=== PATIENT | female | born 1995 | race Caucasian/White ===

== ENCOUNTER 2017-05-17 11:23 | Emergency (ER) | payer OTHER ==
[2017-05-17 11:31] VITALS: TEMP 98.2; BMI 18.8
--- NOTE | 2017-05-17 11:44 | PDOC ---
History of Present Illness - General Chief Complaint: Nausea/Vomiting Stated Complaint: VOMITING Time Seen by Provider: 05/17/17 11:43 Past History - Past Medical History Allergies/Adverse Reactions: Allergies Allergy/AdvReac Type Severity Reaction Status Date / Time No Known Drug Allergies Allergy Verified 05/22/16 09:54 Home Medications: Ambulatory Orders Norethindrone AC-Eth Estradiol [Junel] 1 each PO DAILY 10/08/16 Ondansetron HCl [Zofran] 4 mg PO Q4H #120 tablet 05/17/17 Anemia: Yes Asthma: No Cancer: No Cardiac Disorders: No CVA: No COPD: No CHF: No Dementia: No Diabetes: No GI Disorders: Yes (CYCLIC VOMITNG SYNDROME) Disorders: No HTN: No Hypercholesterolemia: No Liver Disease: No Psychiatric Problems: Yes (ANXIETY) Seizures: No Thyroid Disease: No - Surgical History Abdominal Surgery: Yes (ovarian cyst, exploratory) Appendectomy: Yes (08/2014) - Psycho/Social/Smoking Cessation Hx Anxiety: Yes Suicidal Ideation: No Smoking Status: No Smoking History: Never smoked Have you smoked in the past 12 months: No Number of Cigarettes Smoked Daily: 0 Information on smoking cessation initiated: No Hx Alcohol Use: No Drug/Substance Use Hx: Yes (uday) Substance Use Type: Marijuana Hx Substance Use Treatment: No *Physical Exam - Vital Signs Last Vital Signs Temp Pulse Resp BP Pulse Ox 98.2 F 110 H 18 125/82 100 05/17/17 11:28 05/17/17 11:28 05/17/17 11:28 05/17/17 11:28 05/17/17 11:28 ED Treatment Course - LABORATORY CBC & Chemistry Diagram: 05/17/17 12:10 05/17/17 12:10 Medical Decision Making - Medical Decision Making 05/18/17 09:34 Pt presents to the Ed complaining of nausea and vomiting similar to previous episodes. Resolving in the ED after zofran and ativan. patient admits to chronic THC and xanax abuse, but shows no signs of active benzodiazepine withdrawal. Will discharge home. Family is taking patient to detox. *DC/Admit/Observation/Transfer Diagnosis at time of Disposition: Vomiting, Intractable vomiting with nausea, Epigastric pain - Discharge Dispostion Disposition: HOME Condition at time of disposition: Good - Prescriptions Prescriptions: Ondansetron HCl [Zofran] 4 mg PO Q4H #120 tablet - Referrals Referrals: Svetlana Baxter MD [Primary Care Provider] - - Patient Instructions Printed Discharge Instructions: DI for Vomiting -- Adult Additional Instructions: Please refer to rehab facility and stop marijuana use as it may be a cause of vomiting. Also recommend psychology/psychiatry follow up for anxiety.
[2017-05-17] MEDS ORDERED: ONDANSETRON 4 MG/2 ML VIAL IVPUSH ONE (12:09)
[2017-05-17] MEDS ORDERED: SODIUM CHLORIDE 1,000 ML IV STA ×2 (12:09→13:32)
[2017-05-17] MEDS ORDERED: diazePAM CARPU-JECT 10 MG/2 ML DISP.SYRIN IVPUSH ONE (12:09)
[2017-05-17] MEDS ORDERED: ONDANSETRON 4 MG/2 ML VIAL ONE (12:18)
[2017-05-17] MEDS ORDERED: diazePAM CARPU-JECT 10 MG/2 ML DISP.SYRIN ONE (12:18)
[2017-05-17 12:27] LABS: BASOPHIL 0.5 % (0-2.0); EOSINOPHIL 0.2 % (0-4.5); MCH 31.5 pg (25.7-33.7); MCHC 34.5 g/dl (32.0-36.0); MEAN CELL VOLUME 91.3 fl (80-96); MEAN PLT VOLUME 8.9 fl (7.5-11.1); NEUTROPHILS 64.3 % (42.8-82.8); PLATELET COUNT 255 K/MM3 (134-434); WHITE BLOOD COUNT 10.2 K/mm3 (4.0-10.0)
[2017-05-17 13:00] LABS: ALBUMIN 4.8 g/dl (3.4-5.0); ANION GAP 14 (8-16); BILIRUBIN,TOTAL 1.2 mg/dL (0.2-1.0); CALCIUM 9.9 mg/dL (8.5-10.1); CO2 24 mmol/L (21-32); CREATININE 0.9 mg/dL (0.55-1.02); GLUCOSE,RANDOM 85 mg/dL (74-106); MAGNESIUM 2.3 mg/dL (1.8-2.4); SGOT/AST 18 U/L (15-37); SGPT/ALT 30 U/L (12-78)
[2017-05-17 13:01] LABS: ALK PHOS 39 U/L (45-117)
[2017-05-17] MEDS ORDERED: METOCLOPRAMIDE HCL INJECTION 10 MG/2 ML VIAL IVPUSH ONE (13:32)
[2017-05-17] MEDS ORDERED: METOCLOPRAMIDE HCL INJECTION 10 MG/2 ML VIAL ONE (13:37)
--- NOTE | 2017-05-17 13:45 | PDOC ---
History of Present Illness - General Chief Complaint: Nausea/Vomiting Stated Complaint: VOMITING Time Seen by Provider: 05/17/17 11:43 History Source: Patient Exam Limitations: No Limitations - History of Present Illness Initial Comments: 05/17/17 13:45 This is a 22 yo F with chronic cyclic nausea syndrome of unknown etiology x 4-5 yrs (s/p multiple evaluations including exlap, egd a few yrs ago), who presents with 3 days of typical symptoms including nausea, nonbloody, bilious vomiting and abd pain. There are no new atypical symptoms. She has had multiple episodes of vomiting and has been unable to tolerate P intake. She feels dehydrated and anxious. She denies f/c, diarrhea, dysuria. Her LMp was a week ago, she in on PO contraceptives and her vomiting episondes are not chronologically correlated with menstruation. They tend to occur during periods of anxiety when patient is away from home. for the past 3 days she has been taking her mothers xanax, as well as her own ppi and zofran, which has not helped significantly. She admits do daily marijuana use, which started before the onset of her first vomiting symptoms 5 yrs ago. She is planning to attend rehab after she leaves ER because was told that THC may me a cause of her issue. 05/17/17 14:15 05/17/17 14:32 Past History - Past Medical History Allergies/Adverse Reactions: Allergies Allergy/AdvReac Type Severity Reaction Status Date / Time No Known Drug Allergies Allergy Verified 05/22/16 09:54 Home Medications: Ambulatory Orders Norethindrone AC-Eth Estradiol [Junel] 1 each PO DAILY 10/08/16 Ondansetron HCl [Zofran] 4 mg PO Q4H #120 tablet 05/17/17 Anemia: Yes Asthma: No Cancer: No Cardiac Disorders: No CVA: No COPD: No CHF: No Dementia: No Diabetes: No GI Disorders: Yes (CYCLIC VOMITNG SYNDROME) Disorders: No HTN: No Hypercholesterolemia: No Liver Disease: No Psychiatric Problems: Yes (ANXIETY) Seizures: No Thyroid Disease: No - Surgical History Abdominal Surgery: Yes (ovarian cyst, exploratory) Appendectomy: Yes (08/2014) - Psycho/Social/Smoking Cessation Hx Anxiety: Yes Suicidal Ideation: No Smoking Status: No Smoking History: Never smoked Have you smoked in the past 12 months: No Number of Cigarettes Smoked Daily: 0 Information on smoking cessation initiated: No Hx Alcohol Use: No Drug/Substance Use Hx: Yes (uday) Substance Use Type: Marijuana Hx Substance Use Treatment: No Review of Systems - Review of Systems Able to Perform ROS?: Yes Is the patient limited Portuguese proficient: No Constitutional: No: Chills, Fever, Weakness HEENTM: No: Nose Congestion, Throat Pain, Difficulty Swallowing Respiratory: No: Cough, Orthopnea, Shortness of Breath, Stridor, Productive cough Cardiac (ROS): No: Chest Pain, Edema, Irregular Heart Rate, Lightheadedness, Palpitations, Syncope ABD/GI: Yes: Nausea, Poor Appetite, Vomiting. No: Constipated, Diarrhea, Rectal Bleeding, Tarry Stools : No: Dysuria, Flank Pain Musculoskeletal: No: Back Pain, Joint Pain, Neck Pain Integumentary: No: Bruising, Rash Neurological: No: Headache, Numbness, Paresthesia Psychiatric: Yes: Anxiety, Emotional Problems. No: Depression Endocrine: No: Flushing, Change in Weight Hematologic/Lymphatic: No: Anemia, Blood Clots, Easy Bleeding, Easy Bruising All Other Systems: Reviewed and Negative *Physical Exam - Vital Signs Last Vital Signs Temp Pulse Resp BP Pulse Ox 98.2 F 110 H 18 125/82 100 05/17/17 11:28 05/17/17 11:28 05/17/17 11:28 05/17/17 11:28 05/17/17 11:28 - Physical Exam Comments: 05/17/17 14:33 HEENT: normocephalic, atraumatic, perrla, eomi, sclera anicteric, conjunctiva clear, dry mucus membranes Neuro: CN II-XII grossly intact CV: rrr s1s2 Pulm: cta b/l GI: soft, diffusely mildly tender mostly in pelvic area, nondistended, reduced bowel sounds, no mass . Musculoskeletal: no le edemal ED Treatment Course - LABORATORY CBC & Chemistry Diagram: 05/17/17 12:10 05/17/17 12:10 - ADDITIONAL ORDERS Additional order review: Laboratory Results 05/17/17 05/17/17 12:13 12:10 Sodium 137 Potassium 3.6 Chloride 99 Carbon Dioxide 24 Anion Gap 14 BUN 12 Creatinine 0.9 D Creat Clearance w eGFR > 60 Random Glucose 85 Calcium 9.9 Magnesium 2.3 Total Bilirubin 1.2 H D AST 18 ALT 30 D Alkaline Phosphatase 39 L D Total Protein 8.0 Albumin 4.8 Urine HCG, Qual Negative 05/17/17 12:10 RBC 5.52 H D MCV 91.3 MCHC 34.5 RDW 13.0 MPV 8.9 Neutrophils % 64.3 D Lymphocytes % 22.5 D Monocytes % 12.5 H Eosinophils % 0.2 D Basophils % 0.5 - Medications Given in the ED: ED Medications Discontinued Medications Generic Name Dose Route Start Last Admin Trade Name Ron PRN Reason Stop Dose Admin Diazepam 5 mg 05/17/17 12:09 05/17/17 12:30 Valium Injection - IVPUSH 05/17/17 12:10 5 mg ONCE ONE Administration Sodium Chloride 1,000 mls @ 1,000 mls/hr 05/17/17 12:09 05/17/17 12:30 Normal Saline - IV 05/17/17 13:08 1,000 mls/hr ASDIR STA Administration Ondansetron HCl 4 mg 05/17/17 12:09 05/17/17 12:30 Zofran Injection IVPUSH 05/17/17 12:10 4 mg ONCE ONE Administration Medical Decision Making - Medical Decision Making 05/17/17 13:44 Patient presents with recurrent cyclical vomiting -cbc, instruction assistant principal, ua, u tox, mag, u preg -start NS IV, zofran, valium -CBC consistent with volume depletion, continue IV hydration -cmp unremarkable, u tox as expected positive for thc and benzo. test negative patient still feels nauseous, add IV reglan and benadryl. 05/17/17 14:56 Patient feels better, no longer vomiting. tolerated PO fluids. discussed rehab with mother. patient to be d/cs witha zofran prescription and advised to quit marijuana. 05/17/17 14:58 *DC/Admit/Observation/Transfer Diagnosis at time of Disposition: Vomiting, Intractable vomiting with nausea, Epigastric pain - Discharge Dispostion Disposition: HOME Condition at time of disposition: Good Admit: No - Prescriptions Prescriptions: Ondansetron HCl [Zofran] 4 mg PO Q4H #120 tablet - Patient Instructions Printed Discharge Instructions: DI for Vomiting -- Adult Additional Instructions: Please refer to rehab facility and stop marijuana use as it may be a cause of vomiting. Also recommend psychology/psychiatry follow up for anxiety.
[2017-05-17 13:49] LABS: URINE MARIJUANA THC POSITIVE ng/ml (CUTOFF=50)
[2017-05-17 15:15] VITALS: BP 115/74; PULSE 91
== END 2017-05-17 15:17 | disposition home or self-care (01) ==
LOC: JER 11:23
PROC: 3E033NZ Introduction of Analgesics, Hypnotics, Sedatives into Peripheral Vein, Percutaneous Approach (ICD-10-PCS; principal; 2017-05-17)
PROC: 3E033GC Introduction of Other Therapeutic Substance into Peripheral Vein, Percutaneous Approach (ICD-10-PCS; 2017-05-17)
PROC: 3E033GC Introduction of Other Therapeutic Substance into Peripheral Vein, Percutaneous Approach (ICD-10-PCS; 2017-05-17)
DX: G43.A0 Cyclical vomiting, in migraine, not intractable (principal); E86.0 Dehydration; E86.9 Volume depletion, unspecified
CPT/HCPCS: 36415; 80053; 80307; 83735; 85025; 99283-25

== ENCOUNTER 2017-05-18 16:25 | Emergency (ER) | payer OTHER ==
[2017-05-18 16:34] VITALS: BP 124/92; PULSE 105; TEMP 98.1; BMI 19.2
[2017-05-18] MEDS ORDERED: ONDANSETRON 4 MG/2 ML VIAL IVPB ONE (17:30)
[2017-05-18] MEDS ORDERED: ONDANSETRON *ODT* 4 MG TABLET ONE (17:30)
--- NOTE | 2017-05-18 17:31 | PDOC ---
History of Present Illness - General History Source: Patient Exam Limitations: No Limitations - History of Present Illness Initial Comments: 05/18/17 19:20 The patient is 22 year old female with a significant past medical history of daily marijuana use, who presents to the ED with worsening epigastric pain, nausea, and vomiting. She states it first began 5 days ago. She describes the epigastric pain as 10/10 in severity. She states she has associated symptoms of chills, dry mouth, constipation, and headaches. She states using heat pads over the region helps alleviate the pain. She denies flank pain. She denies fever, diarrhea. She denies dysuria, frequency, urinary symptoms. Vomting is nbnb. She was seen last night for same symptoms. She was discharged on zofran and advised to quit marijuana. She states these symptoms tend to occur during periods of anxiety when patient is away from home. For the past 4 days she has been taking her mother's xanax, as well as her own ppi and zofran, which has not helped significantly. She admits to daily marijuana use, which started before the onset of her first vomiting symptoms 5 years ago. Pt stats she currently feels much better than prior to presentation. She is currently on control. LMP: 3 weeks ago She denies smoking cigarettes. She drinks Alcohol once a week. <Yuniel Padilla - Last Filed: 05/18/17 19:20> <Gume Wilks - Last Filed: 05/20/17 07:51> - General Chief Complaint: Nausea/Vomiting Stated Complaint: NAUSEA, VOMITING Time Seen by Provider: 05/18/17 16:33 Past History <Yuniel Padilla - Last Filed: 05/18/17 19:20> - Past Medical History Anemia: Yes Asthma: No Cancer: No Cardiac Disorders: No CVA: No COPD: No CHF: No Dementia: No Diabetes: No GI Disorders: Yes (CYCLIC VOMITNG SYNDROME) Disorders: No HTN: No Hypercholesterolemia: No Liver Disease: No Psychiatric Problems: Yes (ANXIETY) Seizures: No Thyroid Disease: No - Surgical History Abdominal Surgery: Yes (ovarian cyst, exploratory) Appendectomy: Yes (08/2014) - Psycho/Social/Smoking Cessation Hx Anxiety: Yes Suicidal Ideation: No Smoking Status: No Smoking History: Current some day smoker Have you smoked in the past 12 months: Yes Number of Cigarettes Smoked Daily: 0 Information on smoking cessation initiated: Yes 'Breaking Loose' booklet given: 05/18/17 Hx Alcohol Use: No Drug/Substance Use Hx: Yes (uday) Substance Use Type: Marijuana Hx Substance Use Treatment: No <LashaunGume - Last Filed: 05/20/17 07:51> - Past Medical History Allergies/Adverse Reactions: Allergies Allergy/AdvReac Type Severity Reaction Status Date / Time No Known Drug Allergies Allergy Verified 05/18/17 16:28 Home Medications: Ambulatory Orders Ondansetron HCl [Zofran] 4 mg PO Q4H #120 tablet 05/17/17 Metoclopramide HCl [Reglan] 10 mg PO TID PRN #15 tablet 05/18/17 Norethindrone AC-Eth Estradiol [Loestrin 21 1-20 Tablet] 1 each PO ASDIR Review of Systems - Review of Systems Able to Perform ROS?: Yes Comments:: 05/18/17 19:21 CONSTITUTIONAL: No reported: Fever, Chills, Diaphoresis, Generalized Weakness, Malaise, Loss of Appetite HEENT: No reported: Rhinorrhea, Nasal Congestion, Throat Pain, Throat Swelling, Difficulty Swallowing, Mouth Swelling, Ear Pain, Eye Pain, Visual Changes CARDIOVASCULAR: No reported: Chest Pain, Syncope, Palpitations, Irregular Heart Rate, Lightheadedness, Peripheral Edema RESPIRATORY: No reported: Cough, Shortness of Breath, SOB with Exertion, Orthopnea, Wheezing , Stridor, Hemoptysis GASTROINTESTINAL: + epigastric pain. + nausea + vomiting + contipation. No reported: Abdominal Distension, Diarrhea, Melena, Hematochezia GENITOURINARY: No reported: Dysuria, Frequency, Urgency, Hesitancy, Flank Pain, Genital Pain MUSCULOSKELETAL: No reported: Myalgia, Arthralgia, Joint Swelling, Back pain, Neck Pain SKIN: No reported: Rash, Itching, Pallor HEMEATOLOGIC/IMMUNOLOGIC: No reported: Easy Bleeding, Easy Bruising, Lymphadenopathy, Frequent infections ENDOCRINE: No reported: Unexplained Weight Gain, Unexplained Weight Loss, Heat Intolerance , Cold Intolerance NEUROLOGIC: + headache. No reported: Focal Weakness, Paresthesias, Vertigo, Lightheadedness , Unsteady Gait, Seizure, Mental Status Changes, Incontinence PSYCHIATRIC: No reported: Anxiety, Depression <Yuniel Padilla - Last Filed: 05/18/17 19:20> *Physical Exam - Vital Signs Last Vital Signs Temp Pulse Resp BP Pulse Ox 98.1 F 105 H 20 124/92 99 05/18/17 16:25 05/18/17 16:25 05/18/17 16:25 05/18/17 16:25 05/18/17 16:25 - Physical Exam Comments: 05/18/17 19:21 GENERAL: The patient is awake, alert, and fully oriented, Nontoxic - in no acute distress. HEAD: Normocephalic, atraumatic. EYES: extraocular movements intact, sclera anicteric, conjunctiva clear. ENT: Normal voice, Moist mucous membranes. NECK: Normal range of motion, supple LUNGS: Breath sounds equal, clear to auscultation bilaterally. No wheezes, no rhonchi, no rales. HEART: Regular rate and rhythm, without murmur, rub or gallop. ABDOMEN: mild mid abdominal tenderness. Normoactive bowel sounds. No guarding, no rebound.No CVA tenderness EXTREMITIES: Normal range of motion, no edema. No clubbing or cyanosis. No cords, erythema, or tenderness. NEUROLOGICAL: No facial assymetry, Normal speech, PSYCH: Normal mood, normal affect. SKIN: Warm, Dry, normal turgor, <Yuniel Padilla - Last Filed: 05/18/17 19:20> - Vital Signs Last Vital Signs Temp Pulse Resp BP Pulse Ox 98.1 F 105 H 20 124/92 99 05/18/17 16:25 05/18/17 16:25 05/18/17 16:25 05/18/17 16:25 05/18/17 16:25 <Gume Wilks - Last Filed: 05/20/17 07:51> ED Treatment Course - Medications Given in the ED: ED Medications Discontinued Medications Generic Name Dose Route Start Last Admin Trade Name Ron PRN Reason Stop Dose Admin Ondansetron HCl 4 mg 05/18/17 17:30 05/18/17 17:31 Zofran Injection IVPB 05/18/17 17:31 4 mg ONCE ONE Administration <Yuniel Padilla - Last Filed: 05/18/17 19:20> Medical Decision Making - Medical Decision Making 05/18/17 17:49 22y F hx of occasional abouts of abdominal pain that she suspects may be cannibinoid hyperemesis syndrome presents with abd pain and vomiting. pt was in th eED last night for evaluation for the same, had labs, fluids, valium with improvement. sypmtoms returned a few hrs after she went home so she came back to ED. pt states she is currently feeling much better. no curretn abd pain on exam pt in no distress, chatting wit her father abdomen is soft, mildly heyperactive bowel sounds will pO challenge if able to tolerate oral intake will dc with pmd fu otherwise will place line for fluids/hydration/meds A portion of this note was documented by scribe services under my direction. I have reviewed the details of the note, within reason, and agree with the documentation with the following case summary and management plan written by me 05/18/17 19:51 pt still feeling nauseus will put iv for hydration and treat with pepcid/maalox will sign pt out to dr. cartagena for disposoition <Gume Wilks - Last Filed: 05/20/17 07:51> *DC/Admit/Observation/Transfer - Attestations Scribe Attestion: 05/18/17 19:21 Documentation prepared by Yuniel Padilla, acting as medical grade shoemaker for Gume Wilks MD, . <Yuniel Padilla - Last Filed: 05/18/17 19:20> <Gume Wilks - Last Filed: 05/20/17 07:51> Diagnosis at time of Disposition: Cyclical vomiting syndrome, Anxiety, Marijuana abuse - Discharge Dispostion Disposition: HOME Condition at time of disposition: Stable - Prescriptions Prescriptions: Metoclopramide HCl [Reglan] 10 mg PO TID PRN #15 tablet PRN Reason: Nausea - Patient Instructions Additional Instructions: Stop all marijuana use and do not restart it at any point in the future as the vomiting will resume if you do. Takes Zofran or Reglan as prescribed for the nausea Clear liquids only for the next 6 hours.. After that if you have had no further vomiting you may have bananas, rice, applesauce, or toast. If no further vomiting for another 8 hours you may have regular food. If you vomit again then nothing to eat or drink for 2 hours. then start back with the clear liquids. Return to the emergency department immediately with ANY new, persistent or worsening symptoms. You MUST call and follow up with your doctor tomorrow if not better. Please make sure your doctor reviews the results of your emergency evaluation.
[2017-05-18] MEDS ORDERED: SODIUM CHLORIDE 1,000 ML IV ONE (18:48)
[2017-05-18] MEDS ORDERED: MAG HYDROX/AL HYDROX/SIMETH 355 ML ORAL.SUSP PO ONE (18:48)
[2017-05-18] MEDS ORDERED: FAMOTIDINE 20 MG/50 ML IVPB 20 MG in PREMIX 50 IVPB ONE (18:48)
[2017-05-18] MEDS ORDERED: ONDANSETRON 4 MG/2 ML VIAL ONE (18:55)
[2017-05-18] MEDS ORDERED: FAMOTIDINE 20 MG/50 ML IVPB 50 ML IVPB ONE (18:55)
[2017-05-18] MEDS ORDERED: MAG HYDROX/AL HYDROX/SIMETH 30 ML UNIT-DOSE CUP ONE (18:55)
--- NOTE | 2017-05-18 20:49 | PDOC ---
*Physical Exam - Vital Signs Last Vital Signs Temp Pulse Resp BP Pulse Ox 98.1 F 105 H 20 124/92 99 05/18/17 16:25 05/18/17 16:25 05/18/17 16:25 05/18/17 19:00 05/18/17 16:25 ED Treatment Course - RADIOLOGY Radiology Studies Ordered: Category Date Time Status ABDOMEN FLAT & UPRIGHT [RAD] Stat Radiology 05/18/17 20:05 Ordered - Medications Given in the ED: ED Medications Discontinued Medications Generic Name Dose Route Start Last Admin Trade Name Ron PRN Reason Stop Dose Admin Al Hydroxide/Mg Hydroxide 30 ml 05/18/17 18:48 05/18/17 19:00 Mylanta Suspension - PO 05/18/17 18:49 30 ml ONCE ONE Administration Famotidine/Sodium Chloride 20 50 mls @ 100 mls/hr 05/18/17 18:48 05/18/17 19:05 mg/ Miscellaneous IVPB 05/18/17 19:17 100 mls/hr ONCE ONE Administration Sodium Chloride 1,000 mls @ 1,000 mls/hr 05/18/17 18:48 05/18/17 19:00 Normal Saline - IV 05/18/17 19:47 1,000 mls/hr .Q1H ONE Administration Ondansetron HCl 4 mg 05/18/17 17:30 05/18/17 17:31 Zofran Injection IVPB 05/18/17 17:31 4 mg ONCE ONE Administration Progress Note - Progress Note Progress Note: Care of this patient was transferred to dc from Dr. lamar at 1900 hrs. Patient has cyclic vomiting syndrome secondary to heavy marijuana use. Patient was seen at another facility a few days ago for similar symptoms and had a complete workup at that time. Patient has the anti-emetics Zofran I will give her Reglan also to see if that is more helpful. Patient discharged home with her father. Patient advised to stop marijuana use permanently. *DC/Admit/Observation/Transfer Diagnosis at time of Disposition: Anxiety, Marijuana abuse Cyclical vomiting syndrome Qualifiers: Vomiting Intractability: non-intractable Nausea presence: with nausea Qualified Code(s): G43.A0 - Cyclical vomiting, not intractable - Discharge Dispostion Disposition: HOME Condition at time of disposition: Stable Admit: No - Patient Instructions Additional Instructions: Stop all marijuana use and do not restart it at any point in the future as the vomiting will resume if you do. Takes Zofran or Reglan as prescribed for the nausea Clear liquids only for the next 6 hours.. After that if you have had no further vomiting you may have bananas, rice, applesauce, or toast. If no further vomiting for another 8 hours you may have regular food. If you vomit again then nothing to eat or drink for 2 hours. then start back with the clear liquids. Return to the emergency department immediately with ANY new, persistent or worsening symptoms. You MUST call and follow up with your doctor tomorrow if not better. Please make sure your doctor reviews the results of your emergency evaluation.
== END 2017-05-18 20:49 | disposition home or self-care (01) ==
LOC: FER 16:25
PROC: 3E033GC Introduction of Other Therapeutic Substance into Peripheral Vein, Percutaneous Approach (ICD-10-PCS; principal; 2017-05-18)
PROC: 3E0337Z Introduction of Electrolytic and Water Balance Substance into Peripheral Vein, Percutaneous Approach (ICD-10-PCS; 2017-05-18)
DX: G43.A0 Cyclical vomiting, in migraine, not intractable (principal); F41.9 Anxiety disorder, unspecified; F12.10 Cannabis abuse, uncomplicated; F17.210 Nicotine dependence, cigarettes, uncomplicated
CPT/HCPCS: 99283-25

== ENCOUNTER 2018-01-11 17:20 | Emergency (ER) | payer BC, OTHER ==
[2018-01-11] MEDS ORDERED: KETOROLAC TROMETHAMINE 30 MG/1 ML VIAL IM ONE (17:44)
--- NOTE | 2018-01-11 17:50 | PDOC ---
History of Present Illness - General Chief Complaint: Injury Stated Complaint: RT SHOULDER PAIN Time Seen by Provider: 01/11/18 17:22 - History of Present Illness Initial Comments: 01/11/18 17:47 "Patient is a 22F with PMHx of cyclical vomiting syndrome who presents today with right shoulder pain s/p fall yesterday. Patient states that she went skiing yesterday and fell. She denies headstrike/LOC but cannot recall exactly how she fell. She was able to get up afterwards but reports having pain in her R shoulder. The pain is worse with any movement of her R arm. She denies any pain anywhere else. Denies AGUILERA. Denies neck pain. Social Hx: Daily Marijuana use " Past History - Past Medical History Allergies/Adverse Reactions: Allergies Allergy/AdvReac Type Severity Reaction Status Date / Time No Known Drug Allergies Allergy Verified 01/11/18 17:21 Home Medications: Ambulatory Orders Norethindrone AC-Eth Estradiol [Loestrin 21 1-20 Tablet] 1 each PO ASDIR Anemia: Yes Asthma: No Cancer: No Cardiac Disorders: No CVA: No COPD: No CHF: No Dementia: No Diabetes: No GI Disorders: Yes (CYCLIC VOMITNG SYNDROME) Disorders: No HTN: No Hypercholesterolemia: No Liver Disease: No Psychiatric Problems: Yes (ANXIETY) Seizures: No Thyroid Disease: No - Surgical History Abdominal Surgery: Yes (ovarian cyst, exploratory) Appendectomy: Yes (08/2014) - Suicide/Smoking/Psychosocial Hx Smoking Status: No Smoking History: Current some day smoker Have you smoked in the past 12 months: Yes Number of Cigarettes Smoked Daily: 0 'Breaking Loose' booklet given: 05/18/17 Hx Alcohol Use: No Drug/Substance Use Hx: Yes (uday) Substance Use Type: Marijuana Hx Substance Use Treatment: No Review of Systems - Review of Systems Comments:: 01/11/18 17:49 "GENERAL/CONSTITUTIONAL: No fever or chills. No weakness. HEAD, EYES, EARS, NOSE AND THROAT: No change in vision. No ear pain or discharge. No sore throat. CARDIOVASCULAR: No chest pain or shortness of breath. RESPIRATORY: No cough, wheezing, or hemoptysis. GASTROINTESTINAL: No nausea, vomiting, diarrhea or constipation. GENITOURINARY: No dysuria, frequency, or change in urination. MUSCULOSKELETAL: + R shoulder pain. No neck or back pain. SKIN: No rash NEUROLOGIC: No headache, vertigo, loss of consciousness, or change in strength/ sensation. ENDOCRINE: No increased thirst. No abnormal weight change. HEMATOLOGIC/LYMPHATIC: No anemia, easy bleeding, or history of blood clots. ALLERGIC/IMMUNOLOGIC: No hives or skin allergy. " *Physical Exam - Physical Exam Comments: 01/11/18 17:49 "GENERAL: Awake, alert, and fully oriented, in no acute distress HEAD: No signs of trauma EYES: PERRLA, EOMI, sclera anicteric, conjunctiva clear ENT: Auricles normal inspection, hearing grossly normal, nares patent, oropharynx clear without exudates. Moist mucosa NECK: Nontender, no stepoffs, Normal ROM, supple, no lymphadenopathy, JVD, or masses LUNGS: Breath sounds equal, clear to auscultation bilaterally. No wheezes, and no crackles HEART: Regular rate and rhythm, normal S1 and S2, no murmurs, rubs or gallops ABDOMEN: Soft, nontender, normoactive bowel sounds. No guarding, no rebound. No masses EXTREMITIES: R shoulder with limited active ROM 2/2 pain, full passive ROM, no deformity, no tenderness, neurovascularly intact NEUROLOGICAL: Cranial nerves II through XII intact. 5/5 strength and sensation in all extremities, Normal speech, normal gait, normal cerebellar function SKIN: Warm, Dry, normal turgor, no rashes or lesions noted. " ED Treatment Course - RADIOLOGY Radiology Studies Ordered: Category Date Time Status SHOULDER-RIGHT [RAD] Stat Radiology 01/11/18 17:44 Ordered Medical Decision Making - Medical Decision Making 01/11/18 17:50 22 F with R shoulder pain s/p fall yesterday. No deformity or tenderness on exam , but ROM slightly limited 2/2 pain. Likely rotator cuff injury. - XR R shoulder - Toradol *DC/Admit/Observation/Transfer Diagnosis at time of Disposition: Shoulder pain - Discharge Dispostion Disposition: HOME - Referrals Referrals: Sotero Samuel MD [Staff Physician] - - Patient Instructions Printed Discharge Instructions: DI for Shoulder Pain Additional Instructions: You must follow up with an orthopedic surgeon for further evaluation of your shoulder pain. You may have a rotator cuff injury and will need an MRI. Call the number provided or make an appointment with your own orthopedic surgeon within 1 week. Take tylenol or motrin as needed for pain. If you experience worsening pain, weakness, numbness, or any other concerning symptoms, return to the ER immediately. - Post Discharge Activity - Attestations Physician Attestion: 01/11/18 18:28 I, Dr. Sotero Cooney MD, attest that this document has been prepared under my direction and personally reviewed by me in its entirety. I further attest, that it accurately reflects all work, treatment, procedures and medical decision -making performed by me.
[2018-01-11 17:52] VITALS: BP 124/84; PULSE 77; TEMP 98.1; BMI 22.8
[2018-01-11] MEDS ORDERED: KETOROLAC TROMETHAMINE 30 MG/1 ML VIAL ONE (18:22)
== END 2018-01-11 19:33 | disposition home or self-care (01) ==
LOC: FER 17:20
DX: M25.511 Pain in right shoulder (principal); F17.210 Nicotine dependence, cigarettes, uncomplicated
CPT/HCPCS: 73030-TC-RT-FY; 84703; 99281-25